=== PATIENT | male | born 1980 | race Caucasian/White ===

== ENCOUNTER 2019-12-28 11:08 | Emergency (ER) | payer OTHER ==
[2019-12-28 11:15] VITALS: BP 119/82; PULSE 89; RESP 18; TEMP 98.2
[2019-12-28] MEDS ORDERED: IBUPROFEN 600 MG TAB PO STA (11:32)
--- NOTE | 2019-12-28 11:34 | ED ---
General Adult HPI - General Chief complaint: Skin/Abscess/Foreign Body Stated complaint: Hand Injury Time Seen by Provider: 12/28/19 11:20 Source: patient, family, RN notes reviewed Mode of arrival: ambulatory Limitations: no limitations - History of Present Illness Initial comments: This a 39-year-old male presents emergency Department with chief complaint right hand infection. Patient states that he injected with methamphetamines a few days ago. Patient states that was more swollen which is now increasing. No fevers or chills she has some discomfort. 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 Patient states his tetanus is up-to-date. Patient offers no other complaints. - Related Data Previous Rx's Medication Instructions Recorded Cephalexin [Keflex] 500 mg PO Q6HR #40 cap 12/28/19 Ibuprofen [Motrin] 600 mg PO Q8HR PRN #20 tab 12/28/19 Sulfamethox-Tmp 800-160Mg [Bactrim 1 each PO Q12HR #20 tab 12/28/19 Ds] Allergies Allergy/AdvReac Type Severity Reaction Status Date / Time prochlorperazine AdvReac Unknown Verified 12/28/19 11:12 [From Compazine] Review of Systems ROS Statement: Those systems with pertinent positive or pertinent negative responses have been documented in the HPI. ROS Other: All systems not noted in ROS Statement are negative. Past Medical History Past Medical History: No Reported History History of Any Multi-Drug Resistant Organisms: None Reported Past Surgical History: No Surgical Hx Reported Past Psychological History: ADD/ADHD, Depression Smoking Status: Current every day smoker Past Alcohol Use History: None Reported Past Drug Use History: Heroin, IV Drug Use, Methamphetamine, Opiates, Prescription Drug Abuse General Exam Limitations: no limitations General appearance: alert, in no apparent distress Head exam: Present: atraumatic, normocephalic, normal inspection Respiratory exam: Present: normal lung sounds bilaterally. Absent: respiratory distress, wheezes, rales, rhonchi, stridor Cardiovascular Exam: Present: regular rate, normal rhythm, normal heart sounds. Absent: systolic murmur, diastolic murmur, rubs, gallop, clicks Extremities exam: Present: other (Right hand dorsal aspect there is erythema noted that extends to the wrist and MCP region. Patient is for range of motion full-strength all digits of his right hand. Pulses equal bilaterally there is no fluctuant area there is mild edema noted) Course Vital Signs 12/28/19 11:12 Temperature 98.2 F Pulse Rate 89 Respiratory 18 Rate Blood Pressure 119/82 O2 Sat by Pulse 98 Oximetry Medical Decision Making - Medical Decision Making X-ray was obtained there is no foreign body. Patient has right hand cellulitis there is no proximal fluctuant area. Patient was started on oral antibiotics. He is advised to return for any worsening change in symptoms. Disposition Clinical Impression: Cellulitis of right hand Disposition: HOME SELF-CARE Condition: Stable Instructions (If sedation given, give patient instructions): Cellulitis (ED) Additional Instructions: Please return to the Emergency Department if symptoms worsen or any other concerns. Prescriptions: Sulfamethox-Tmp 800-160Mg [Bactrim Ds] 1 each PO Q12HR #20 tab Cephalexin [Keflex] 500 mg PO Q6HR #40 cap Ibuprofen [Motrin] 600 mg PO Q8HR PRN #20 tab PRN Reason: Pain Is patient prescribed a controlled substance at d/c from ED?: No Referrals: None,Stated [Primary Care Provider] - 1-2 days Time of Disposition: 11:34
--- NOTE | 2019-12-28 11:58 | XR ---
EXAMINATION TYPE: XR hand limited LT DATE OF EXAM: 12/28/2019 COMPARISON: NONE HISTORY: Pain and swelling TECHNIQUE: Two views are submitted. FINDINGS: The osseous structures are intact. The joint spaces are preserved and there is no acute fracture or dislocation. Soft tissue edema. IMPRESSION: 1. Soft tissue edema. No definite acute fracture or dislocation if symptoms persist, follow-up study in 7 to 10 days would be suggested
[2019-12-28] MEDS ORDERED: CEPHALEXIN 500MG STARTER PACK 4 CAP BTL PO STA (11:59)
== END 2019-12-28 12:02 | disposition home or self-care (01) ==
LOC: EC 11:08
DX: L03.113 Cellulitis of right upper limb (principal); F17.200 Nicotine dependence, unspecified, uncomplicated; Z88.8 Allergy status to other drugs, medicaments and biological substances; Z86.14 Personal history of Methicillin resistant Staphylococcus aureus infection
CPT/HCPCS: 99283

== ENCOUNTER 2020-02-29 18:59 | Emergency (ER) | payer OTHER ==
[2020-02-29 19:04] VITALS: BP 133/97; PULSE 79; RESP 18; TEMP 98.2
--- NOTE | 2020-02-29 19:07 | ED ---
Nausea/Vomiting/Diarrhea HPI - General Chief complaint: Nausea/Vomiting/Diarrhea Stated complaint: withdrawals Time Seen by Provider: 02/29/20 19:00 Source: patient Mode of arrival: wheelchair Limitations: no limitations - History of Present Illness Initial comments: 39-year-old male presenting to the emergency department with a chief complaint of opiate withdrawal. Patient states he is coming from [place]. Patient states he was on methadone therapy stopped taking it 2 weeks ago in order to wean himself off of it. Patient states the withdrawal symptoms were so extensive that he used heroin yesterday. Patient states he is withdrawing them from the heroin. Patient reports nausea, vomiting, diarrhea, abdominal cramping. States she has not been able to keep much fluids down. He also reports having chills but no fevers. - Related Data Previous Rx's Medication Instructions Recorded LORazepam [Ativan] 1 mg PO HS 3 Days #3 tab 02/29/20 Ondansetron Odt [Zofran Odt] 4 mg PO Q8HR PRN #20 tab 02/29/20 Allergies Allergy/AdvReac Type Severity Reaction Status Date / Time prochlorperazine AdvReac Unknown Verified 02/29/20 20:20 [From Compazine] Review of Systems ROS Statement: Those systems with pertinent positive or pertinent negative responses have been documented in the HPI. ROS Other: All systems not noted in ROS Statement are negative. Past Medical History Past Medical History: No Reported History History of Any Multi-Drug Resistant Organisms: None Reported Past Surgical History: No Surgical Hx Reported Additional Past Surgical History / Comment(s): kidney surgery- half removed Past Psychological History: ADD/ADHD, Depression Smoking Status: Current every day smoker Past Alcohol Use History: None Reported Past Drug Use History: Heroin, IV Drug Use, Methamphetamine, Opiates, Prescription Drug Abuse General Exam Limitations: no limitations General appearance: alert, in no apparent distress Head exam: Present: atraumatic, normocephalic, normal inspection Eye exam: Present: normal appearance, PERRL, EOMI Pupils: Present: normal accommodation ENT exam: Present: normal exam, mucous membranes dry, mucous membranes moist, TM's normal bilaterally, normal external ear exam Neck exam: Present: normal inspection, full ROM. Absent: tenderness Respiratory exam: Present: normal lung sounds bilaterally. Absent: respiratory distress, wheezes, rales Cardiovascular Exam: Present: regular rate, normal rhythm, normal heart sounds GI/Abdominal exam: Present: soft. Absent: distended, tenderness, guarding, rebound Extremities exam: Present: normal inspection, full ROM, normal capillary refill. Absent: tenderness, pedal edema, joint swelling Back exam: Present: normal inspection, full ROM. Absent: tenderness, CVA tenderness (R), CVA tenderness (L) Neurological exam: Present: alert, oriented X3, normal gait Psychiatric exam: Present: normal affect, normal mood Skin exam: Present: warm, dry, intact, normal color Course Vital Signs 02/29/20 19:00 Temperature 98.2 F Pulse Rate 79 Respiratory 18 Rate Blood Pressure 133/97 O2 Sat by Pulse 97 Oximetry Medical Decision Making - Medical Decision Making 39-year-old male with history of substance abuse presenting to the emergency with a chief complaint of opioid withdrawal. On physical examination, patient does appear to be in distress and he is vomiting. He reports going to this before. Patient was given 1.5 L of IV fluids, antiemetics and Ativan. Patient is also clinically dehydrated with dry mucous members. On reevaluation, patient reports improvement of symptoms. He still does report feeling nauseous. Patient was given Reglan and Benadryl. This helped resolve the symptoms. I gave him and his mother additional information regarding local detox centers along with homeless care home information. Patient denies any homicidal, suicidal thoughts or ideations. Patient states he does not want to stay in the hospital and wants to go home. Patient will be discharged with 3 tablets of Ativan. He will also be given Zofran. Return parameters thoroughly discussed the patient is understanding and agreeable. Case discussed with physician. - Lab Data Result diagrams: 02/29/20 19:40 02/29/20 19:40 Lab Results 02/29/20 02/29/20 Range/Units 19:40 19:40 WBC 14.8 H (3.8-10.6) k/uL RBC 5.17 (4.30-5.90) m/uL Hgb 14.9 (13.0-17.5) gm/dL Hct 44.7 (39.0-53.0) % MCV 86.5 (80.0-100.0) fL MCH 28.8 (25.0-35.0) pg MCHC 33.4 (31.0-37.0) g/dL RDW 13.8 (11.5-15.5) % Plt Count 481 H (150-450) k/uL MPV 6.6 Neutrophils % 87 % Lymphocytes % 8 % Monocytes % 3 % Eosinophils % 1 % Basophils % 0 % Neutrophils # 12.9 H (1.3-7.7) k/uL Lymphocytes # 1.2 (1.0-4.8) k/uL Monocytes # 0.4 (0-1.0) k/uL Eosinophils # 0.1 (0-0.7) k/uL Basophils # 0.0 (0-0.2) k/uL Sodium 135 L (137-145) mmol/L Potassium 4.7 (3.5-5.1) mmol/L Chloride 102 (98-107) mmol/L Carbon Dioxide 22 (22-30) mmol/L Anion Gap 11 mmol/L BUN 13 (9-20) mg/dL Creatinine 0.67 (0.66-1.25) mg/dL Est GFR (CKD-EPI)AfAm >90 (>60 ml/min/1.73 sqM) Est GFR (CKD-EPI)NonAf >90 (>60 ml/min/1.73 sqM) Glucose 148 H (74-99) mg/dL Calcium 10.3 H (8.4-10.2) mg/dL Total Bilirubin 0.7 (0.2-1.3) mg/dL AST 28 (17-59) U/L ALT 16 (4-49) U/L Alkaline Phosphatase 109 (38-126) U/L Total Protein 8.7 H (6.3-8.2) g/dL Albumin 4.7 (3.5-5.0) g/dL Lipase 15 L (23-300) U/L Disposition Clinical Impression: Narcotic withdrawal, Nausea vomiting and diarrhea Disposition: HOME SELF-CARE Condition: Fair Instructions (If sedation given, give patient instructions): Opioid Withdrawal (ED) Additional Instructions: Follow-up with the detox facility using the information provided. I also give the additional information regarding homeless shelters. Take prescribed medication as directed. Prescriptions: LORazepam [Ativan] 1 mg PO HS 3 Days #3 tab Ondansetron Odt [Zofran Odt] 4 mg PO Q8HR PRN #20 tab PRN Reason: Nausea Is patient prescribed a controlled substance at d/c from ED?: Yes If prescribed controlled substance>3 days was MAPS reviewed?: Prescribed <3 Days Referrals: Nonstaff,Physician [Primary Care Provider] - 1-2 days Time of Disposition: 21:02
[2020-02-29] MEDS ORDERED: SODIUM CHLORIDE 0.9% 500 ML 500 ML IV STA (19:11)
[2020-02-29] MEDS ORDERED: ONDANSETRON 4 MG/2 ML VIAL IVP STA (19:11)
[2020-02-29] MEDS ORDERED: SODIUM CHLORIDE 0.9% 1,000 ML IV STA (19:11)
[2020-02-29] MEDS ORDERED: DICYCLOMINE 10 MG/ML 2 ML AMP IM STA (19:12)
[2020-02-29] MEDS ORDERED: PANTOPRAZOLE 40 MG/10 ML VIAL IVP STA (19:18)
[2020-02-29 19:53] LABS: Basophils % (A) 0 %; Eosinophils # (A) 0.1 k/uL (0-0.7); Eosinophils % (A) 1 %; HCT 44.7 % (39.0-53.0); HGB 14.9 gm/dL (13.0-17.5); Lymphocytes # (A) 1.2 k/uL (1.0-4.8); Lymphocytes % (A) 8 %; MCH 28.8 pg (25.0-35.0); MCHC 33.4 g/dL (31.0-37.0); MCV 86.5 fL (80.0-100.0); Mean Platelet Volume 6.6; Monocytes # (A) 0.4 k/uL (0-1.0); Monocytes % (A) 3 %; Neutrophils # (A) 12.9 k/uL (1.3-7.7); Neutrophils % (A) 87 %; Platelet Count 481 k/uL (150-450); RBC 5.17 m/uL (4.30-5.90); RDW 13.8 % (11.5-15.5); WBC 14.8 k/uL (3.8-10.6)
[2020-02-29 20:17] LABS: ALT 16 U/L (4-49); AST 28 U/L (17-59); African American GFR (CKD) >90 (>60 ml/min/1.73 sqM); Albumin 4.7 g/dL (3.5-5.0); Alkaline Phosphatase 109 U/L (38-126); Anion Gap 11 mmol/L; Blood Urea Nitrogen 13 mg/dL (9-20); Calcium 10.3 mg/dL (8.4-10.2); Carbon Dioxide 22 mmol/L (22-30); Chloride 102 mmol/L (98-107); Glucose 148 mg/dL (74-99); Lipase 15 U/L (23-300); Non-African American GFR(CKD) >90 (>60 ml/min/1.73 sqM); Potassium 4.7 mmol/L (3.5-5.1); Sodium 135 mmol/L (137-145); Total Bilirubin 0.7 mg/dL (0.2-1.3); Total Protein 8.7 g/dL (6.3-8.2)
[2020-02-29] MEDS ORDERED: LORazepam 2 MG/ML INJ IV STA (20:32)
[2020-02-29] MEDS ORDERED: diphenhydrAMINE 50 MG/ML 1 ML VIAL IVP STA (21:28)
[2020-02-29] MEDS ORDERED: METOCLOPRAMIDE 5 MG/ML 2 ML VIAL IVP STA (21:29)
== END 2020-02-29 21:41 | disposition home or self-care (01) ==
LOC: EC 18:59
DX: F11.23 Opioid dependence with withdrawal (principal); F17.200 Nicotine dependence, unspecified, uncomplicated; Z88.8 Allergy status to other drugs, medicaments and biological substances
CPT/HCPCS: 36415; 80053; 83690; 85025; 99284; 96372; 96374; 96375 ×4; J2060; J1200; J0500; J2765; J2405; C9113

== ENCOUNTER 2020-03-10 03:16 | Emergency (ER) | payer OTHER ==
[2020-03-10 03:21] VITALS: BP 185/104; PULSE 110; RESP 22; TEMP 98.5
--- NOTE | 2020-03-10 03:30 | ED ---
Skin/Abscess/FB HPI - General Chief complaint: Skin/Abscess/Foreign Body Stated complaint: Left hand abscess Time Seen by Provider: 03/10/20 03:22 Source: patient, family, RN notes reviewed, old records reviewed Mode of arrival: ambulatory Limitations: no limitations - History of Present Illness Initial comments: This is a 39-year-old male who presents from [facility] for evaluation of left hand swelling and redness. As well as left forearm swelling and redness both that injection sites. Patient's from [facility] due to drug abuse and rehab. Patient states he's been going on for months and is her significantly improved and denies any drainage from either. Patient states this state continued to heal well and denying any fevers or any redness otherwise MD complaint: rash (Patient has redness and swelling changes both on (left arm states she was forced for evaluation by [facility]) -: week(s) Tetanus Up to Date: yes Location: LUE, L hand Severity: mild Severity scale (1-10): 3 Consistency: constant, other (Symptoms have been improving for weeks) Improves with: none Worsens with: none Context: IVDA Associated symptoms: denies other symptoms - Related Data Previous Rx's Medication Instructions Recorded LORazepam [Ativan] 1 mg PO HS 3 Days #3 tab 02/29/20 Ondansetron Odt [Zofran Odt] 4 mg PO Q8HR PRN #20 tab 02/29/20 Cephalexin [Keflex] 500 mg PO Q6HR #40 cap 03/10/20 Sulfamethox-Tmp 800-160Mg [Bactrim 2 tab PO BID #40 tab 03/10/20 DS 800-160 mg] Allergies Allergy/AdvReac Type Severity Reaction Status Date / Time prochlorperazine AdvReac Unknown Verified 03/10/20 03:21 [From Compazine] Review of Systems ROS Statement: Those systems with pertinent positive or pertinent negative responses have been documented in the HPI. ROS Other: All systems not noted in ROS Statement are negative. Past Medical History Past Medical History: No Reported History History of Any Multi-Drug Resistant Organisms: None Reported Past Surgical History: No Surgical Hx Reported Additional Past Surgical History / Comment(s): kidney surgery- half removed Past Psychological History: ADD/ADHD, Depression Smoking Status: Current every day smoker Past Alcohol Use History: None Reported Past Drug Use History: Heroin, IV Drug Use, Methamphetamine, Opiates, Prescription Drug Abuse General Exam - General Exam Comments Initial Comments: Patient has a cellulitic area in the left hand as well as left forearm Limitations: no limitations General appearance: alert, in no apparent distress Head exam: Present: atraumatic, normocephalic, normal inspection Eye exam: Present: normal appearance, PERRL, EOMI. Absent: scleral icterus, conjunctival injection, periorbital swelling ENT exam: Present: normal exam, mucous membranes moist Neck exam: Present: normal inspection. Absent: tenderness, meningismus, lymphadenopathy Respiratory exam: Present: normal lung sounds bilaterally. Absent: respiratory distress, wheezes, rales, rhonchi, stridor Cardiovascular Exam: Present: regular rate, normal rhythm, normal heart sounds. Absent: systolic murmur, diastolic murmur, rubs, gallop, clicks GI/Abdominal exam: Present: soft, normal bowel sounds. Absent: distended, tenderness, guarding, rebound, rigid Extremities exam: Present: normal inspection, full ROM, normal capillary refill. Absent: tenderness, pedal edema, joint swelling, calf tenderness Back exam: Present: normal inspection Neurological exam: Present: alert, oriented X3, CN II-XII intact Psychiatric exam: Present: normal affect, normal mood Skin exam: Present: warm, dry, intact, normal color. Absent: rash Course Vital Signs 03/10/20 03:17 Temperature 98.5 F Pulse Rate 110 H Respiratory 22 Rate Blood Pressure 185/104 O2 Sat by Pulse 100 Oximetry - Reevaluation(s) Reevaluation #1: medical record is reviewed Patient has improvement of symptoms, continues to feel better. Patient informed results, questions answered Patient feels stable for discharge home Medical Decision Making - Medical Decision Making 39 male DF for evaluation of left hand swelling, left forearm swelling. Patient can be discharged home Disposition Clinical Impression: Cellulitis of left hand Disposition: HOME SELF-CARE Condition: Good Instructions (If sedation given, give patient instructions): Cellulitis (ED) Prescriptions: Sulfamethox-Tmp 800-160Mg [Bactrim DS 800-160 mg] 2 tab PO BID #40 tab Cephalexin [Keflex] 500 mg PO Q6HR #40 cap Is patient prescribed a controlled substance at d/c from ED?: No Referrals: Nonstaff,Physician [Primary Care Provider] - 1-2 days
[2020-03-10] MEDS ORDERED: CEPHALEXIN 500MG STARTER PACK 4 CAP BTL PO STA (03:38)
[2020-03-10] MEDS ORDERED: SULFAMETH-TMP DS STARTER PACK 2 TAB BTL PO STA (03:38)
[2020-03-10] MEDS ORDERED: CEPHALEXIN 500 MG CAP PO STA (03:38)
[2020-03-10] MEDS ORDERED: SULFAMETHOX-TMP 800-160MG 1 EACH TAB PO STA (03:38)
== END 2020-03-10 03:56 | disposition home or self-care (01) ==
LOC: EC 03:16
DX: L03.114 Cellulitis of left upper limb (principal); F17.200 Nicotine dependence, unspecified, uncomplicated; Z88.8 Allergy status to other drugs, medicaments and biological substances
CPT/HCPCS: 99283

== ENCOUNTER 2020-07-07 10:53 | Emergency (ER) | payer OTHER ==
[2020-07-07] MEDS ORDERED: LORazepam 2 MG/ML INJ IV STA (11:44)
[2020-07-07] MEDS ORDERED: cloNIDine HCL 0.1 MG TAB PO STA (11:45)
[2020-07-07] MEDS ORDERED: SODIUM CHLORIDE 0.9% 500 ML 500 ML IV SCH (11:45)
--- NOTE | 2020-07-07 11:46 | ED ---
General Adult HPI - General Chief complaint: Skin/Abscess/Foreign Body Stated complaint: R Leg Infection Time Seen by Provider: 07/07/20 11:26 Source: patient, RN notes reviewed Mode of arrival: ambulatory Limitations: no limitations - History of Present Illness Initial comments: 40-year-old male presents to the emergency room for a chief complaint of i nfection. Patient reports heroin eating up in his right leg. States he has had symptoms of infection for about a week now. States he has been taking oral antibiotics for 3 days without relief. States it is swollen. Patient states this has happened in the past. Patient states he is now withdrawing from heroin as well. He denies fever.Patient has no other complaints at this time including shortness of breath, chest pain, abdominal pain, nausea or vomiting, headache, or visual changes. - Related Data Previous Rx's Medication Instructions Recorded Sulfamethox-Tmp 800-160Mg [Bactrim 1 tab PO Q12HR #20 tab 07/07/20 DS 800-160 mg] cloNIDine HCL [Catapres] 0.1 mg PO BID #10 tab 07/07/20 Allergies Allergy/AdvReac Type Severity Reaction Status Date / Time prochlorperazine AdvReac Unknown Verified 07/07/20 11:48 [From Compazine] Review of Systems ROS Statement: Those systems with pertinent positive or pertinent negative responses have been documented in the HPI. ROS Other: All systems not noted in ROS Statement are negative. Past Medical History Past Medical History: No Reported History History of Any Multi-Drug Resistant Organisms: None Reported Past Surgical History: No Surgical Hx Reported Additional Past Surgical History / Comment(s): kidney surgery- half removed Past Psychological History: ADD/ADHD, Depression Smoking Status: Current every day smoker Past Alcohol Use History: None Reported Past Drug Use History: Heroin, IV Drug Use, Methamphetamine, Opiates, Prescription Drug Abuse General Exam Limitations: no limitations General appearance: alert, in no apparent distress Head exam: Present: atraumatic, normocephalic, normal inspection Eye exam: Present: normal appearance ENT exam: Present: normal exam, mucous membranes moist Neck exam: Present: normal inspection. Absent: tenderness, meningismus, lymphadenopathy Respiratory exam: Present: normal lung sounds bilaterally. Absent: respiratory distress, wheezes, rales, rhonchi, stridor Cardiovascular Exam: Present: regular rate, normal rhythm, normal heart sounds. Absent: systolic murmur, diastolic murmur, rubs, gallop, clicks GI/Abdominal exam: Present: soft, normal bowel sounds. Absent: distended, tenderness, guarding, rebound, rigid Extremities exam: Present: full ROM (Full range motion of the right lower leg), normal capillary refill (Capillary refill less than 2 seconds right lower leg), other (Patient has erythema noted to the proximal aspect of the medial right tib-fib area. There is a wound noted as well, no evidence of drainable abscess or fluctuance.). Absent: pedal edema, joint swelling, calf tenderness Course Vital Signs 07/07/20 07/07/20 07/07/20 11:03 12:22 13:26 Temperature 98.0 F 97.6 F Pulse Rate 52 L 51 L 47 L Respiratory 18 14 14 Rate Blood Pressure 167/102 161/94 158/99 O2 Sat by Pulse 100 99 100 Oximetry Medical Decision Making - Medical Decision Making Vitals are stable. Patient does have some erythema noted to the medial aspect of the right proximal tib-fib area. As is consistent with about 5 cm x 5 cm of cellulitis. Laboratory valuation was initiated which was unremarkable. White blood cell count 6.7. CMP unremarkable. X-ray of the tib-fib does not show any foreign bodies such as needles. Dr. Love also evaluated patient. At this point he is only on Keflex, we will start him on MRSA coverage with Bactrim. We will also give him clonidine for heroin withdrawal symptoms. Patient will return for any worsening symptoms or cellulitis is not improving. - Lab Data Result diagrams: 07/07/20 11:50 07/07/20 11:50 Lab Results 07/07/20 07/07/20 07/07/20 Range/Units 11:50 11:50 11:50 WBC 6.7 (3.8-10.6) k/uL RBC 4.33 (4.30-5.90) m/uL Hgb 12.5 L (13.0-17.5) gm/dL Hct 37.7 L (39.0-53.0) % MCV 87.0 (80.0-100.0) fL MCH 28.9 (25.0-35.0) pg MCHC 33.2 (31.0-37.0) g/dL RDW 12.9 (11.5-15.5) % Plt Count 407 (150-450) k/uL MPV 6.6 Neutrophils % 84 % Lymphocytes % 11 % Monocytes % 3 % Eosinophils % 1 % Basophils % 1 % Neutrophils # 5.6 (1.3-7.7) k/uL Lymphocytes # 0.7 L (1.0-4.8) k/uL Monocytes # 0.2 (0-1.0) k/uL Eosinophils # 0.1 (0-0.7) k/uL Basophils # 0.0 (0-0.2) k/uL PT 10.1 (9.0-12.0) sec INR 0.9 (<1.2) APTT 25.1 (22.0-30.0) sec Sodium 138 (137-145) mmol/L Potassium 4.4 (3.5-5.1) mmol/L Chloride 100 (98-107) mmol/L Carbon Dioxide 31 H (22-30) mmol/L Anion Gap 7 mmol/L BUN 9 (9-20) mg/dL Creatinine 0.75 (0.66-1.25) mg/dL Est GFR (CKD-EPI)AfAm >90 (>60 ml/min/1.73 sqM) Est GFR (CKD-EPI)NonAf >90 (>60 ml/min/1.73 sqM) Glucose 161 H (74-99) mg/dL Plasma Lactic Acid Osmar (0.7-2.0) mmol/L Calcium 9.4 (8.4-10.2) mg/dL Total Bilirubin 0.3 (0.2-1.3) mg/dL AST 19 (17-59) U/L ALT 10 (4-49) U/L Alkaline Phosphatase 96 (38-126) U/L Total Protein 7.4 (6.3-8.2) g/dL Albumin 4.2 (3.5-5.0) g/dL 07/07/20 Range/Units 11:50 WBC (3.8-10.6) k/uL RBC (4.30-5.90) m/uL Hgb (13.0-17.5) gm/dL Hct (39.0-53.0) % MCV (80.0-100.0) fL MCH (25.0-35.0) pg MCHC (31.0-37.0) g/dL RDW (11.5-15.5) % Plt Count (150-450) k/uL MPV Neutrophils % % Lymphocytes % % Monocytes % % Eosinophils % % Basophils % % Neutrophils # (1.3-7.7) k/uL Lymphocytes # (1.0-4.8) k/uL Monocytes # (0-1.0) k/uL Eosinophils # (0-0.7) k/uL Basophils # (0-0.2) k/uL PT (9.0-12.0) sec INR (<1.2) APTT (22.0-30.0) sec Sodium (137-145) mmol/L Potassium (3.5-5.1) mmol/L Chloride (98-107) mmol/L Carbon Dioxide (22-30) mmol/L Anion Gap mmol/L BUN (9-20) mg/dL Creatinine (0.66-1.25) mg/dL Est GFR (CKD-EPI)AfAm (>60 ml/min/1.73 sqM) Est GFR (CKD-EPI)NonAf (>60 ml/min/1.73 sqM) Glucose (74-99) mg/dL Plasma Lactic Acid Osmar 1.6 (0.7-2.0) mmol/L Calcium (8.4-10.2) mg/dL Total Bilirubin (0.2-1.3) mg/dL AST (17-59) U/L ALT (4-49) U/L Alkaline Phosphatase (38-126) U/L Total Protein (6.3-8.2) g/dL Albumin (3.5-5.0) g/dL Disposition Clinical Impression: Cellulitis Disposition: HOME SELF-CARE Condition: Good Instructions (If sedation given, give patient instructions): Cellulitis (ED) Additional Instructions: Please take medications as directed. Please follow-up with your doctor in one to 2 days. If symptoms are not improving return to the emergency room. Prescriptions: Sulfamethox-Tmp 800-160Mg [Bactrim DS 800-160 mg] 1 tab PO Q12HR #20 tab cloNIDine HCL [Catapres] 0.1 mg PO BID #10 tab Is patient prescribed a controlled substance at d/c from ED?: No Referrals: Stormy Yang MD [REFERRING] - 1-2 days Time of Disposition: 14:22
[2020-07-07 12:19] LABS: Basophils % (A) 1 %; Eosinophils # (A) 0.1 k/uL (0-0.7); Eosinophils % (A) 1 %; HCT 37.7 % (39.0-53.0); HGB 12.5 gm/dL (13.0-17.5); Lymphocytes # (A) 0.7 k/uL (1.0-4.8); Lymphocytes % (A) 11 %; MCH 28.9 pg (25.0-35.0); MCHC 33.2 g/dL (31.0-37.0); Mean Platelet Volume 6.6; Monocytes # (A) 0.2 k/uL (0-1.0); Monocytes % (A) 3 %; Neutrophils # (A) 5.6 k/uL (1.3-7.7); Neutrophils % (A) 84 %; Platelet Count 407 k/uL (150-450); RBC 4.33 m/uL (4.30-5.90); RDW 12.9 % (11.5-15.5); WBC 6.7 k/uL (3.8-10.6)
[2020-07-07 12:23] VITALS: TEMP 97.6
[2020-07-07 12:29] LABS: INR 0.9 (<1.2); Partial Thromboplastin Time 25.1 sec (22.0-30.0); Prothrombin Time 10.1 sec (9.0-12.0)
[2020-07-07 12:38] LABS: ALT 10 U/L (4-49); AST 19 U/L (17-59); African American GFR (CKD) >90 (>60 ml/min/1.73 sqM); Albumin 4.2 g/dL (3.5-5.0); Alkaline Phosphatase 96 U/L (38-126); Anion Gap 7 mmol/L; Blood Urea Nitrogen 9 mg/dL (9-20); Calcium 9.4 mg/dL (8.4-10.2); Carbon Dioxide 31 mmol/L (22-30); Chloride 100 mmol/L (98-107); Glucose 161 mg/dL (74-99); Non-African American GFR(CKD) >90 (>60 ml/min/1.73 sqM); Potassium 4.4 mmol/L (3.5-5.1); Sodium 138 mmol/L (137-145); Total Bilirubin 0.3 mg/dL (0.2-1.3); Total Protein 7.4 g/dL (6.3-8.2)
[2020-07-07] MEDS ORDERED: ONDANSETRON 4 MG/2 ML VIAL IVP STA (13:14)
[2020-07-07 13:27] VITALS: BP 158/99
--- NOTE | 2020-07-07 13:54 | XR ---
Right leg HISTORY: Pain Frontal lateral views the right leg on 4 images Bone mineralization is maintained. There is no fracture or dislocation. There is soft tissue swelling . No evident periostitis. impression: Correlate for cellulitis, edema
[2020-07-07] MEDS ORDERED: SULFAMETH-TMP DS STARTER PACK 2 TAB BTL PO STA (14:22)
[2020-07-07 14:37] VITALS: PULSE 50; RESP 18
== END 2020-07-07 14:36 | disposition home or self-care (01) ==
LOC: EC 10:53
DX: L03.115 Cellulitis of right lower limb (principal); F17.200 Nicotine dependence, unspecified, uncomplicated; Z88.8 Allergy status to other drugs, medicaments and biological substances
CPT/HCPCS: 36415; 80053; 83605; 85025; 85610; 85730; 87040; 73590; 99283; 96374; 96375; J2060; J2405